=== PATIENT | male | born 1940 | race Caucasian/White ===

== ENCOUNTER 2017-11-07 07:52 | Day surgery (SDC) | payer MEDICARE, OTHER ==
[~2017-11-07] VITALS: Ht 182.9 cm; Wt 68.2 kg
[~2017-11-07 07:52] MED LIST: BACL10TA PO; CARB25TA12 PO; CARB50TA3 PO; CLON0.5T PO; ENTA1TAB PO; GABA600T PO; METH-715 PO; MIDO10TA PO; RAPA8CAP PO; RISP0.5T2 PO; ROPI.5 PO; SERT-132 PO; ZOFR4TAB PO
[2017-11-07] MEDS ORDERED: IOHEXOL 350 MG/ML 50 ML BTL (for RAD DIAG) OTHER ONE (07:53)
[2017-11-07] MEDS ORDERED: SODIUM CHLORIDE 0.9% 1000 ML IV SCH (08:00)
[2017-11-07 08:05] VITALS: BP 122/66; PULSE 93; RESP 17; TEMP 97.4; O2SAT 93
[2017-11-07] MEDS ORDERED: OXYC1TAB63 PO (08:52)
[2017-11-07] MEDS ORDERED: MIDAZOLAM HCL 2 MG/2 ML VIAL ONE (11:37)
[2017-11-07 12:05] VITALS: BP 149/83; PULSE 62; RESP 16; TEMP 97.6; O2SAT 95
--- NOTE | 2017-11-07 12:09 | PD.RAD ---
Post Procedure Progress Note Pre Procedure Diagnosis: (1) Suprapubic catheter dysfunction Post Procedure Diagnosis: (1) Suprapubic catheter dysfunction Procedure Date: Nov 07, 2017 Supervising Radiologist: Alex Haider JR Proceduralist/Assist: Annel Roberts, RT(R)(CV), Geoff Leyva, RT(R) Anesthesia: Conscious Sedation Plan of Activity Patient to Unit: ROPU Patient Condition: Good See PACS Report for procedural detail/treatment Drainage Procedure Procedure 1 Procedure Type: Suprapubic Tube Procedure: Replacement [place]: 16 Drainage: [place] drainage Fluid Description: Clear Findings: The existing coped style catheter was replaced with a conventional lake catheter. It is in good position and draining well. Jr. Vitaly,Alex Pang MD Nov 07, 2017 12:09
[2017-11-07 12:22] VITALS: BP 128/79; PULSE 60; RESP 17; O2SAT 94
[2017-11-07 12:52] VITALS: BP 115/71; PULSE 60; RESP 18; O2SAT 95
[2017-11-07 13:22] VITALS: BP 118/72; PULSE 60; RESP 17; O2SAT 98
--- NOTE | 2017-11-07 14:11 | RADRPT ---
EXAM DATE/TIME: 11/07/2017 11:16 [facility] COMPARISON: No previous studies available for comparison. INDICATIONS : Patient with history of urinary retention in need of suprapubic catheter exchange. MEDICAL HISTORY : Chronic cystitis Urinary retention CHF MRSA Arthritis GERD Skin cancer Neurogenic bladder Parkinsons Dementia Neuropathy Peptic ulcer SURGICAL HISTORY : Suprapubic catheter Inguinal Hernia Bilateral cataract Tonsillectomy Pacemaker Cardiac cath Hernia repair Knee replacement ENCOUNTER: Initial ACUITY: 1 day PAIN SCORE: 0/10 LOCATION: N/A FLUORO TIME: 0.8 minutes IMAGE SERIES: 2 SEDATION TIME: 20 minutes CONTRAST: 10 cc Omnipaque 350 (iohexol) MEDICATION(S): 1.) 1 mg midazolam (Versed) IV 2.) 50 mcg fentanyl (Sublimaze) IV DEVICE(S): 1.) [place] catheter 16 FR PROCEDURE : 1. Suprapubic catheter change. 2. Conscious sedation with continuous EKG and oximetry monitoring. The risks, benefits and alternatives to the procedure were explained and verbal and written consent w as obtained. The site was prepped in sterile fashion. Full sterile technique was used, including cap, mask, steril e gloves and gown and a large sterile sheet. Hand hygiene and 2% chlorhexidine and/or betadine/alcoho l prep was utilized per protocol for cutaneous antisepsis. The skin and subcutaneous tissues were infiltrated with local anes thetic solution. A guidewire was placed through the existing pigtail catheter and over this the prescribed catheter wa s placed in the bladder. Positive contrast was injected to confirm position. The urinary bladder lume n has a markedly irregular contour with significant trabeculation and several diverticula. Conscious sedation was performed with the prescribed dosages and duration as above in the presence of an independent trained radiology nurse to assist in the monitoring of the patient. EKG and oximetry remained stable throughout the procedure. The patient tolerated the procedure well and there were no complications. The patient was sent to post anesthesia recovery in stable condition. CONCLUSION: Uncomplicated suprapubic catheter exchange. Markedly irregular bladder wall with trabeculation and nu merous diverticula. Alex Haider Jr., MD on November 07, 2017 at 14:06 Board Certified Radiologist. This report was verified electronically.
== END 2017-11-07 14:20 | disposition home or self-care (01) ==
LOC: HROP 07:52 → HRIP 07:53 → HROP 14:20
DX: N30.20 Other chronic cystitis without hematuria (principal); R33.9 Retention of urine, unspecified; I50.9 Heart failure, unspecified; K21.9 Gastro-esophageal reflux disease without esophagitis; G20 Parkinson's disease; F03.90 Unspecified dementia, unspecified severity, without behavioral disturbance, psychotic disturbance, mood disturbance, and anxiety; Z87.11 Personal history of peptic ulcer disease; Z85.828 Personal history of other malignant neoplasm of skin; Z86.14 Personal history of Methicillin resistant Staphylococcus aureus infection
CPT/HCPCS: 51102; 77002; 99152; 99153; C1769; J2250; J3010; J7030; Q9967